=== PATIENT | male | born 1980 | race Caucasian/White ===

== ENCOUNTER 2018-06-17 11:11 | Emergency (ER) | payer OTHER ==
[2018-06-17 11:46] LABS: Absolute Lymphocytes (CBC) 1.2 K/uL (0.7-4.9); Absolute Monocytes 0.9 K/uL (0.1-1.3); Absolute Neutrophil 8.8 K/uL (1.8-8.0); Basophils % 0.6 % (0-1.3); Eosinophils % 0.7 % (0-4.4); Hematocrit 50.2 % (39.6-49.0); Lymphocytes % 10.5 % (15.3-44.8); MPV 9.1 fL (7.6-11.3); RBC Red Blood Cell Count 6.03 M/uL (4.33-5.43)
[2018-06-17] MEDS ORDERED: ONDANSETRON 4 MG/2 ML VIAL ONE (11:56)
[2018-06-17] MEDS ORDERED: NA CHLORIDE 0.9% 1,000 ML ONE (11:57)
[2018-06-17 12:04] LABS: Bilirubin Direct 0.2 mg/dL (0-0.2); Bilirubin Total 0.5 mg/dL (0.2-1.0); Potassium 3.4 mmol/L (3.5-5.1); Protein, Total 7.7 g/dL (6.4-8.2)
--- NOTE | 2018-06-17 12:37 | EDPHYS ---
Physician Documentation [facility] Name: Howie Castaneda Age: 37 yrs Sex: Male : 1980 Arrival Date: 06/17/2018 Time: 11:15 Bed 18 Private MD: None, None ED Physician Damien Berrios HPI: 06/17 11:26 This 37 yrs old Male presents to ER via Ambulatory with complaints of Cough, rn Nausea, fatigue. 11:26 The patient or guardian reports cough. Onset: The symptoms/episode began/occurred 3 rn week(s) ago. 11:27 Severity of symptoms: At their worst the symptoms were mild, in the emergency rn department the symptoms are unchanged. Associated signs and symptoms: Pertinent positives: nausea, Pertinent negatives: rhinorrhea, sore throat, vomiting. The patient has not experienced similar symptoms in the past. Reports diagnosed with strep throat 2-3 weeks ago, got better, got sick again recently, told had bronchitis, now patient with improved but still present cough, now reports more fatigue, intermittent abd cramping, assoc with nausea but no vomiting. No diarrhea. No hx of abd surgeries. Reports has been able to eat cheeseburger and orange juice, just feels nausea so stops. . Historical: - Allergies: 11:24 Morphine; hb - Home Meds: 11:24 None [Active]; hb - PMHx: 11:24 None; hb - PSHx: 11:24 None; hb - Immunization history:: Adult Immunizations up to date. - Social history:: Smoking status: Patient/guardian denies using tobacco. - Ebola Screening: : No symptoms or risks identified at this time. - Family history:: not pertinent. - Hospitalizations: : No recent hospitalization is reported. ROS: 11:27 Constitutional: Negative for chills, and weight loss, Eyes: Negative for injury, pain, rn redness, and discharge, ENT: Negative for injury, pain, and discharge, Neck: Negative for injury, pain, and swelling, Cardiovascular: Negative for chest pain, palpitations, and edema, Respiratory: Negative for shortness of breath, cough, wheezing, and pleuritic chest pain, Abdomen/GI: Negative for current abd pain, + nausea, no vomiting Back: Negative for injury and pain, MS/Extremity: Negative for injury and deformity, Skin: Negative for injury, rash, and discoloration, Neuro: Negative for numbness, tingling, and seizure. Exam: 11:27 Constitutional: This is a well developed, well nourished patient who is awake, alert, rn and in no acute distress. Walked to room without difficulty Head/Face: Normocephalic, atraumatic. Eyes: Pupils equal round and reactive to light, extra-ocular motions intact. Lids and lashes normal. Conjunctiva and sclera are non-icteric and not injected. Cornea within normal limits. Periorbital areas with no swelling, redness, or edema. ENT: dry MM with cracked lips Neck: Trachea midline, no thyromegaly or masses palpated, and no cervical lymphadenopathy. Supple, full range of motion without nuchal rigidity, or vertebral point tenderness. No Meningismus. Cardiovascular: Regular rate and rhythm. No pulse deficits. Respiratory: Lungs have equal breath sounds bilaterally, clear to auscultation Abdomen/GI: soft, non-tender Skin: Warm, dry MS/ Extremity: Pulses equal, no cyanosis. Neurovascular intact. Full, normal range of motion. Equal circumference. Neuro: Awake and alert, GCS 15, oriented to person, place, time, and situation. Cranial nerves II-XII grossly intact. Motor strength 5/5 in all extremities. Sensory grossly intact. Cerebellar exam normal. Normal gait. Vital Signs: 11:22 BP 131 / 96; Pulse 94; Resp 16; Temp 99.8(O); Pulse Ox 98% on R/A; Pain 3/10; hb 12:27 BP 136 / 101; Pulse 85; Resp 18; Pulse Ox 98% on R/A; Pain 8/10; em MDM: 11:17 Patient medically screened. rn 12:35 Differential Diagnosis: Influenza Upper Respiratory Infection. Data reviewed: vital rn signs, nurses notes, lab test result(s), radiologic studies. Counseling: I had a detailed discussion with the patient and/or guardian regarding: the historical points, exam findings, and any diagnostic results supporting the discharge/admit diagnosis, lab results, radiology results, the need for outpatient follow up, to return to the emergency department if symptoms worsen or persist or if there are any questions or concerns that arise at home. Response to treatment: the patient's symptoms have markedly improved after treatment, and as a result, I will discharge patient. Special discussion: I discussed with the patient/guardian in detail that at this point there is no indication for admission to the hospital. It is understood, however, that if the symptoms persist or worsen the patient needs to return immediately for re-evaluation. 06/17 11:25 Order name: CBC with Diff; Complete Time: 11:56 rn 06/17 11:25 Order name: Basic Metabolic Panel; Complete Time: 12:33 rn 06/17 11:25 Order name: Flu; Complete Time: 12: rn 06/17 11:25 Order name: Strep; Complete Time: 12: rn 06/17 11:25 Order name: [place] Screen Profile; Complete Time: 12: rn 06/17 11:25 Order name: LFT's; Complete Time: 12: rn 06/17 11:25 Order name: IV Start; Complete Time: 11:40 rn 06/17 11:25 Order name: Lipase; Complete Time: 12: rn 06/17 11:27 Order name: XRAY Chest Pa And Lat (2 Views) rn 06/17 12:04 Order name: Throat Culture EDMS Administered Medications: 11:53 Drug: NS 0.9% 1000 ml Route: IV; Rate: 1000 ml; Site: right antecubital; em 12:50 Follow up: IV Status: Completed infusion; IV Intake: 1000ml em 12:40 Drug: TORadol 30 mg Route: IVP; Site: right antecubital; la1 12:50 Follow up: Response: No adverse reaction; Pain is decreased em 12:41 Not Given (Patient Refused): Zofran 4 mg IVP once; over 2 minutes em Disposition: 06/17/18 12:36 Discharged to Home. Impression: Influenza due to identified novel influenza A virus, Infectious mononucleosis. - Condition is Stable. - Discharge Instructions: Influenza, Adult, Infectious Mononucleosis. - Prescriptions for Tamiflu 75 mg Oral Capsule - take 1 capsule by ORAL route every 12 hours for 5 days; 10 capsule. Zofran ODT 4 mg Oral tablet,disintegrating - place 1 tablet by TRANSLINGUAL route every 8 hours; 15 tablet. - Medication Reconciliation Form, Thank You Letter, Antibiotic Education, Prescription Opioid Use form. - Follow up: Private Physician; When: As needed; Reason: Recheck today's complaints, Re-evaluation by your physician. - Problem is new. - Symptoms have improved. Signatures: Dispatcher [employer] ED Brent Keller, OPERATIONS CHIEF OPERATIONS CHIEF em Damien Berrios MD MD rn Attema, Lee, RN RN la1 Arabella Motta RN RN Corrections: (The following items were deleted from the chart) 12:52 12:36 06/17/2018 12:36 Discharged to Home. Impression: Influenza due to identified em novel influenza A virus; Infectious mononucleosis. Condition is Stable. Forms are Medication Reconciliation Form, Thank You Letter, Antibiotic Education, Prescription Opioid Use. Follow up: Private Physician; When: As needed; Reason: Recheck today's complaints, Re-evaluation by your physician. Problem is new. Symptoms have improved. rn
--- NOTE | 2018-06-17 12:37 | ER ---
Nurse's Notes [facility] Name: Howie Castaneda Age: 37 yrs Sex: Male : 1980 Arrival Date: 06/17/2018 Time: 11:15 Bed 18 Private MD: None, None Diagnosis: Influenza due to identified novel influenza A virus;Infectious mononucleosis Presentation: 06/17 11:22 Presenting complaint: Cough and nausea x 1 week, headache and upper abdominal pain hb since last night. Transition of care: patient was not received from another setting of care. Onset of symptoms is unknown. Risk Assessment: Do you want to hurt yourself or someone else? Patient reports no desire to harm self or others. Care prior to arrival: None. 11:22 Method Of Arrival: Ambulatory hb 11:22 Acuity: BAKARI 3 hb Historical: - Allergies: 11:24 Morphine; hb - Home Meds: 11:24 None [Active]; hb - PMHx: 11:24 None; hb - PSHx: 11:24 None; hb - Immunization history:: Adult Immunizations up to date. - Social history:: Smoking status: Patient/guardian denies using tobacco. - Ebola Screening: : No symptoms or risks identified at this time. - Family history:: not pertinent. - Hospitalizations: : No recent hospitalization is reported. Screenin:24 Abuse screen: Denies threats or abuse. Denies injuries from another. Nutritional hb screening: No deficits noted. Tuberculosis screening: No symptoms or risk factors identified. Fall Risk None identified. Assessment: 11:38 General: Appears in no apparent distress. uncomfortable, Behavior is calm, cooperative, em reports malaise for 2 days. Pain: Complains of pain in abdomen Pain currently is 3 out of 10 on a pain scale. Pain began 1 day ago. Neuro: Level of Consciousness is awake, alert, obeys commands, Oriented to person, place, time, situation. Cardiovascular: Heart tones S1 S2 present Capillary refill < 3 seconds Patient's skin is warm and dry. Respiratory: Reports cough that is Airway is patent Respiratory effort is even, unlabored, Respiratory pattern is regular, symmetrical. GI: Abdomen is flat, Bowel sounds present X 4 quads. Abd is soft and non tender X 4 quads. Reports constipation, nausea, Patient currently denies vomiting. Derm: Skin is intact, is healthy with good turgor, Skin is pink, warm \T\ dry. Musculoskeletal: Range of motion: intact in all extremities. 11:45 Reassessment: I agree with previous assessment. hb 12:27 Reassessment: Patient appears in no apparent distress at this time. Patient and/or em family updated on plan of care and expected duration. Pain level reassessed. Patient is alert, oriented x 3, equal unlabored respirations, skin warm/dry/pink. reports frontal headache, rates pain 8/10, provider notified. Vital Signs: 11:22 BP 131 / 96; Pulse 94; Resp 16; Temp 99.8(O); Pulse Ox 98% on R/A; Pain 3/10; hb 12:27 BP 136 / 101; Pulse 85; Resp 18; Pulse Ox 98% on R/A; Pain 8/10; em ED Course: 11:15 Patient arrived in ED. mr 11:16 None, None is Private Physician. mr 11:17 Damien Berrios MD is Attending Physician. rn 11:23 Triage completed. hb 11:24 Arm band placed on. hb 11:29 Brent Keller LVN is Primary Nurse. em 11:36 Initial lab(s) drawn, by me, sent to lab. Flu and/or RSV swab sent to lab. Strep swab dh3 sent to lab. Inserted saline lock: 20 gauge in right antecubital area, using aseptic technique. Blood collected. 11:38 Patient has correct armband on for positive identification. Bed in low position. Call em light in reach. Side rails up X2. Pulse ox on. NIBP on. 12:21 XRAY Chest Pa And Lat (2 Views) In Process Unspecified. EDMS 12:49 No provider procedures requiring assistance completed. intact, bleeding controlled, No em redness/swelling at site. Pressure dressing applied. Administered Medications: 11:53 Drug: NS 0.9% 1000 ml Route: IV; Rate: 1000 ml; Site: right antecubital; em 12:50 Follow up: IV Status: Completed infusion; IV Intake: 1000ml em 12:40 Drug: TORadol 30 mg Route: IVP; Site: right antecubital; la1 12:50 Follow up: Response: No adverse reaction; Pain is decreased em 12:41 Not Given (Patient Refused): Zofran 4 mg IVP once; over 2 minutes em Intake: 12:50 IV: 1000ml; Total: 1000ml. em Outcome: 12:36 Discharge ordered by . rn 12:49 Discharged to home ambulatory. em 12:49 Condition: good 12:49 Discharge instructions given to patient, Instructed on discharge instructions, follow up and referral plans. medication usage, Demonstrated understanding of instructions, follow-up care, medications, Prescriptions given X 2. 12:52 Patient left the ED. em Signatures: Dispatcher [employer] EASTON RoderickMeghann mr Keller, Brent, DIGITAL SALES PLANNER DIGITAL SALES PLANNER em Damien Berrios MD MD rn Attema, Arcadio RN RN la1 Arabella Motta RN MILES Dari[place], Catia 3 Corrections: (The following items were deleted from the chart) 12:29 11:38 General: Appears in no apparent distress. uncomfortable, Behavior is calm, em cooperative, em
[2018-06-17] MEDS ORDERED: KETOROLAC 30 MG/ML INJ ONE (12:47)
--- NOTE | 2018-06-17 12:52 | RAD REPORT ---
EXAM DESCRIPTION: Wade Starks (2 Views)06/17/2018 12:22 pm CLINICAL HISTORY: Cough COMPARISON: None FINDINGS: The lungs appear clear of acute infiltrate. The heart is normal size IMPRESSION: No acute abnormalities displayed
== END 2018-06-17 12:52 | disposition home or self-care (01) ==
LOC: ER 11:11
DX: J11.1 Influenza due to unidentified influenza virus with other respiratory manifestations (principal); Z88.5 Allergy status to narcotic agent
CPT/HCPCS: 36415; 71046; 80048; 80076; 83690; 85025; 86308; 87070; 87081; 87804 ×2; 96361; 96374; 99284; J2405; J7030

== ENCOUNTER 2019-01-02 06:13 | Emergency (ER) | payer OTHER ==
[2019-01-02] MEDS ORDERED: NA CHLORIDE 0.9% 1,000 ML ONE (06:41)
[2019-01-02 07:01] LABS: Absolute Lymphocytes (CBC) 3.5 K/uL (0.7-4.9); Basophils % 1.1 % (0-1.3); Hematocrit 46.4 % (39.6-49.0); Lymphocytes % 33.4 % (15.3-44.8); MPV 8.7 fL (7.6-11.3); RBC Red Blood Cell Count 5.53 M/uL (4.33-5.43)
[2019-01-02 07:19] LABS: Albumin 3.7 g/dL (3.4-5.0); Bilirubin Direct 0.1 mg/dL (0-0.2); Bilirubin Total 0.3 mg/dL (0.2-1.0); Potassium 3.9 mmol/L (3.5-5.1); Protein, Total 7.2 g/dL (6.4-8.2)
--- NOTE | 2019-01-02 08:36 | RAD REPORT ---
EXAM DESCRIPTION: US - Scrotum Testicles - 01/02/2019 7:30 am CLINICAL HISTORY: left testicle pain COMPARISON: Stone Protocol dated 01/02/2019 FINDINGS: The right testicle 3.9 x 2.5 x 1.9 cm. No intratesticular masses or evidence of testicular torsion. The left testicle 3.5 x 2.2 x 2.0 cm. No intratesticular masses or evidence of testicular torsion. Both epididymides are normal in size and appearance. No pathologic fluid collections. IMPRESSION: Unremarkable study.
--- NOTE | 2019-01-02 08:36 | RAD REPORT ---
EXAM DESCRIPTION: CT - Stone Protocol - 01/02/2019 6:57 am CLINICAL HISTORY: Flank pain. left abdominal pain COMPARISON: No comparisons TECHNIQUE: Axial images were obtained without oral or IV contrast. Lack of contrast limits solid org an and vascular assessment. The [id number] spans the entirety of the system partially obscuring uppermost abdomen and lung bases. Coronal reformatted images were obtained and reviewed. All CT scans are performed using dose optimization technique as appropriate and may include automated exposure control or mA/KV adjustment according to patient size. FINDINGS: The lower lung castro are clear. Imaged portions of the liver and spleen show no suspicious findings on non-contrast imaging. The panc reas and adrenal glands are normal. No pathologic lymphadenopathy in the abdomen or pelvis. Mild left hydronephrosis and hydroureter is present without evidence of a radiopaque calculus. Recent ly passed calculus from left side is a possibility. No right-sided urinary tract stone or obstructive uropathy. No bowel obstruction, free air, free fluid or abscess. Normal appendix noted. No significant bony abnormality. IMPRESSION: Mild left-sided hydronephrosis and hydroureter is present without visualization of a rad iopaque calculus. Recently passed left-sided calculus would be a possibility.
[2019-01-02 08:57] LABS: Urine Blood TRACE (NEG); Urine Glucose TRACE (NEG); Urine Protein NEGATIVE (NEG); Urine Specific Gravity 1.025 (1.005-1.030); Urine pH 6.5 (5.0-7.0)
--- NOTE | 2019-01-02 09:22 | ER ---
Nurse's Notes [facility] Name: Howie Castaneda Age: 38 yrs Sex: Male : 1980 Arrival Date: 01/02/2019 Time: 06:15 Bed 20 Private MD: Diagnosis: Left Testicle Pain;Unspecified abdominal pain Presentation: 01/02 06:26 Presenting complaint: Patient states: "Around 4:30 this morning I woke up with pain in tr5 my left testicle and left part of my stomach. I also noticed my stool was green in color around 6:00am.". Transition of care: patient was not received from another setting of care. Onset of symptoms was January 02, 2019. Risk Assessment: Do you want to hurt yourself or someone else? Patient reports no desire to harm self or others. Initial Sepsis Screen: Does the patient meet any 2 criteria? No. Patient's initial sepsis screen is negative. Does the patient have a suspected source of infection? No. Patient's initial sepsis screen is negative. Care prior to arrival: None. 06:26 Method Of Arrival: Ambulatory tr5 06:26 Acuity: BAKARI 3 tr5 Triage Assessment: 07:00 General: Appears in no apparent distress. comfortable, Behavior is calm, cooperative, bp appropriate for age. Pain: Complains of pain in abdomen and pelvis. EENT: No deficits noted. Neuro: No deficits noted. Cardiovascular: No deficits noted. Respiratory: No deficits noted. GI: Reports lower abdominal pain. : Reports Scrotal pain: sudden onset. Derm: No deficits noted. Musculoskeletal: No deficits noted. Historical: - Allergies: 06:30 Morphine; tr5 - Home Meds: 06:30 atorvastatin oral [Active]; buspirone Oral [Active]; levothyroxine [Active]; ibuprofen tr5 Oral [Active]; - PMHx: 06:30 Hyperlipidemia; Hypertension; Depression; tr5 - PSHx: 06:30 nasal surgery; Tonsillectomy; tr5 - Immunization history:: Adult Immunizations up to date. - Social history:: Smoking status: unknown. - Ebola Screening: : No symptoms or risks identified at this time. Screenin:31 Abuse screen: Denies threats or abuse. Nutritional screening: No deficits noted. tr5 Tuberculosis screening: No symptoms or risk factors identified. Fall Risk None identified. Assessment: 06:31 General: Appears uncomfortable. Pain: Complains of pain in pelvis Pain radiates to left tr5 upper quadrant and left lower quadrant Quality of pain is described as crampy, sharp, Pain began 2 hours ago. Neuro: Level of Consciousness is awake, alert, obeys commands, Oriented to person, place, time, Line Out Man are equal bilaterally Moves all extremities. Cardiovascular: Capillary refill < 3 seconds Pulses are all present. Edema is absent. Respiratory: Airway is patent Respiratory effort is even, unlabored, Respiratory pattern is regular, symmetrical. GI: Bowel sounds present X 4 quads. Abd is soft X 4 quads. : Reports Scrotal pain: sudden onset. EENT: No signs and/or symptoms were reported regarding the EENT system. Derm: Skin temperature is warm. Musculoskeletal: Capillary refill < 3 seconds, Range of motion: intact in all extremities. 07:00 Reassessment: RECD REPORT FROM MADHAVI AQUINO. 38YO WM P/W L ABDOMINAL AND TESTICULAR PAIN. bp U/S AND UOP PENDING. 07:54 Reassessment: PT RETURNED FROM CT. bp 09:30 Reassessment: IVF IN PROCESS, D/C ON HOLD. bp 10:16 Reassessment: PT D/C HOME AMBULATORY, DX WITH UNSPECIFIED ABDOMINAL PAIN. bp Vital Signs: 06:30 BP 168 / 100; Pulse 60; Resp 16; Temp 98.8(O); Pulse Ox 99% on R/A; Weight 89.81 kg; tr5 Height 5 ft. 11 in. (180.34 cm); 08:00 BP 150 / 102; Pulse 63; Resp 16; Pulse Ox 99% ; bp 09:30 BP 138 / 94; Pulse 69; Resp 16; Pulse Ox 97% ; bp 06:30 Body Mass Index 27.62 (89.81 kg, 180.34 cm) tr5 ED Course: 06:15 Patient arrived in ED. ds1 06:21 Rikki Moffett PA is PHCP. cp 06:21 Duane Matamoros MD is Attending Physician. cp 06:26 Madhavi West RN is Primary Nurse. tr5 06:28 Triage completed. tr5 06:30 Arm band placed on. tr5 06:31 Patient has correct armband on for positive identification. Placed in gown. Bed in low tr5 position. Call light in reach. Pulse ox on. NIBP on. Door closed. Noise minimized. 06:31 No provider procedures requiring assistance completed. tr5 06:45 Inserted saline lock: 20 gauge in right antecubital area, using aseptic technique. tr5 06:[address] via stretcher. tr5 06:58 CT completed. Patient tolerated procedure well. 07:00 CT Stone Protocol In Process Unspecified. EDMS 08:47 US Scrotum Testicles In Process Unspecified. EDMS 09:04 Basic Metabolic Panel Sent. bp 09:19 Catracho Mina MD is Referral Physician. cp 10:17 IV discontinued, intact, bleeding controlled, No redness/swelling at site. Pressure bp dressing applied. Administered Medications: 06:51 Drug: NS 0.9% 1000 ml Route: IV; Rate: 1 bolus; Site: right antecubital; tr5 09:15 Drug: Rocephin - (cefTRIAXone) 1 grams Route: IVPB; Infused Over: 30 mins; Site: right bp antecubital; 09:15 Drug: TORadol 30 mg Route: IVP; Site: right antecubital; bp Outcome: 09:21 Discharge ordered by MD. cp 10:17 Discharged to home ambulatory. bp 10:17 Condition: stable 10:17 Discharge instructions given to patient, Instructed on discharge instructions, follow up and referral plans. medication usage, Demonstrated understanding of instructions, follow-up care, medications, Prescriptions given X 3. 10:17 Patient left the ED. bp Signatures: Dispatcher [employer] EDMN Rachid Fang Jinny Yen ds1 Rikki Moffett PA PA cp Peltier, Brian, RN RN bp Madhavi West, RN RN tr5
--- NOTE | 2019-01-02 09:22 | EDPHYS ---
Physician Documentation [facility] Name: Howie Castaneda Age: 38 yrs Sex: Male : 1980 Arrival Date: 01/02/2019 Time: 06:15 Bed 20 Private MD: ED Physician Duane Matamoros HPI: 01/02 06:45 This 38 yrs old Male presents to ER via Ambulatory with complaints of cp Testicular Pain, Abdominal Pain. 06:45 The patient presents with scrotal pain, of the left side, tenderness. Onset: The cp symptoms/episode began/occurred suddenly, this morning. Associated signs and symptoms: Pertinent positives: abdominal pain. 06:45 Severity of symptoms: in the emergency department the symptoms are unchanged, despite cp home interventions. Historical: - Allergies: 06:30 Morphine; tr5 - Home Meds: 06:30 atorvastatin oral [Active]; buspirone Oral [Active]; levothyroxine [Active]; ibuprofen tr5 Oral [Active]; - PMHx: 06:30 Hyperlipidemia; Hypertension; Depression; tr5 - PSHx: 06:30 nasal surgery; Tonsillectomy; tr5 - Immunization history:: Adult Immunizations up to date. - Social history:: Smoking status: unknown. - Ebola Screening: : No symptoms or risks identified at this time. ROS: 06:50 Constitutional: Negative for body aches, chills, fever, poor PO intake. cp 06:50 Eyes: Negative for injury, pain, redness, and discharge. cp 06:50 ENT: Negative for drainage from ear(s), ear pain, sore throat, difficulty swallowing, difficulty handling secretions. 06:50 Cardiovascular: Negative for chest pain, palpitations. 06:50 Respiratory: Negative for cough, shortness of breath, wheezing. 06:50 Abdomen/GI: Positive for abdominal pain, of the left lower quadrant, Negative for vomiting, diarrhea, constipation, anorexia, black/tarry stool, rectal bleeding. 06:50 Back: Negative for pain at rest, pain with movement, radiated pain. 06:50 : Positive for testicular pain Negative for urinary symptoms, penile discharge. 06:50 Skin: Negative for rash. 06:50 Neuro: Negative for altered mental status, headache, weakness. 06:50 All other systems are negative. Exam: 07:00 Constitutional: The patient appears in no acute distress, alert, awake, non-toxic, well cp developed, well nourished. 07:00 Head/Face: Normocephalic, atraumatic. cp 07:00 Eyes: Periorbital structures: appear normal, Conjunctiva: normal, no exudate, no injection, Sclera: no appreciated abnormality, Lids and lashes: appear normal, bilaterally. 07:00 ENT: External ear(s): are unremarkable, Nose: is normal, Mouth: Lips: moist, Oral mucosa: pink and intact, moist, Posterior pharynx: is normal, airway is patent, no erythema, no exudate. 07:00 Chest/axilla: Inspection: normal, Palpation: is normal, no crepitus, no tenderness. 07:00 Cardiovascular: Rate: normal, Rhythm: regular. 07:00 Respiratory: the patient does not display signs of respiratory distress, Respirations: normal, no use of accessory muscles, no retractions, no splinting, no tachypnea, labored breathing, is not present, Breath sounds: are clear throughout, no decreased breath sounds, no stridor, no wheezing. 07:00 Abdomen/GI: Inspection: abdomen appears normal, Bowel sounds: active, all quadrants, Palpation: soft, in all quadrants, mild abdominal tenderness, in the left upper quadrant and left lower quadrant, rebound tenderness, is not appreciated, involuntary guarding, is not appreciated. 07:00 : Male external genitalia: tenderness, of the left testicle is noted, of the epididymis area, that is mild. 07:00 Skin: no rash present. 07:00 Neuro: Orientation: to person, place \T\ time. Mentation: is normal. Vital Signs: 06:30 BP 168 / 100; Pulse 60; Resp 16; Temp 98.8(O); Pulse Ox 99% on R/A; Weight 89.81 kg; tr5 Height 5 ft. 11 in. (180.34 cm); 08:00 BP 150 / 102; Pulse 63; Resp 16; Pulse Ox 99% ; bp 09:30 BP 138 / 94; Pulse 69; Resp 16; Pulse Ox 97% ; bp 06:30 Body Mass Index 27.62 (89.81 kg, 180.34 cm) tr5 MDM: 06:26 Patient medically screened. cp 07:45 ED course: received verbal US report that scrotal US negative. cp 10:10 Data reviewed: vital signs, nurses notes, lab test result(s), radiologic studies, CT cp scan, ultrasound. 10:10 Differential diagnosis: appendicitis, UTI, prostatitis, urethritis, testicular torsion, cp epididymitis, orchitis, kidney stone. Counseling: I had a detailed discussion with the patient and/or guardian regarding: the historical points, exam findings, and any diagnostic results supporting the discharge/admit diagnosis, lab results, radiology results, to return to the emergency department if symptoms worsen or persist or if there are any questions or concerns that arise at home. Response to treatment: the patient's symptoms have mildly improved after treatment. Special discussion: Based on the patient's Hx, exam, and Dx evaluation, there is no indication for emergent surgery or inpatient Tx. It is understood by the patient/guardian that if the Sx's persist or worsen they need to return immediately for re-evaluation. 01/02 06:37 Order name: Basic Metabolic Panel 01/02 06:37 Order name: CBC with Diff; Complete Time: 08:08 01/02 08:59 Interpretation: Normal except: RBC 5.53. 01/02 06:37 Order name: Creatinine for Radiology; Complete Time: 08:08 01/02 06:37 Order name: Hepatic Function; Complete Time: 08:08 01/02 06:37 Order name: Lipase; Complete Time: 08:08 01/02 06:37 Order name: Urine Microscopic Only 01/02 06:37 Order name: IV Saline Lock; Complete Time: 06:51 01/02 06:37 Order name: US Scrotum Testicles; Complete Time: 08:58 cp 01/02 09:09 Interpretation: Report reviewed. 01/02 06:37 Order name: CT Stone Protocol; Complete Time: 08:58 01/02 06:38 Order name: Basic Metabolic Panel; Complete Time: 08:08 EDMS 01/02 08:59 Interpretation: Normal except: CL 111; GFR 72. 01/02 08:56 Order name: Urine Dipstick--Ancillary (enter results); Complete Time: 09:00 bd 01/02 09:00 Interpretation: Normal except: UBLD TRACE. 01/02 06:37 Order name: Labs collected and sent; Complete Time: 06:51 cp 01/02 06:37 Order name: Urine Dipstick-Ancillary (obtain specimen); Complete Time: 08:35 cp Administered Medications: 06:51 Drug: NS 0.9% 1000 ml Route: IV; Rate: 1 bolus; Site: right antecubital; tr5 09:15 Drug: Rocephin - (cefTRIAXone) 1 grams Route: IVPB; Infused Over: 30 mins; Site: right bp antecubital; 09:15 Drug: TORadol 30 mg Route: IVP; Site: right antecubital; bp Disposition: 19:10 Co-signature as Attending Physician, Duane Matamoros MD. Disposition: 01/02/19 09:21 Discharged to Home. Impression: Left Testicle Pain, Unspecified abdominal pain. - Condition is Stable. - Discharge Instructions: Abdominal Pain, Adult, Epididymitis. - Prescriptions for Ibuprofen 800 mg Oral Tablet - take 1 tablet by ORAL route every 8 hours As needed take with food; 30 tablet. Doxycycline Hyclate 100 mg Oral Tablet - take 1 tablet by ORAL route every 12 hours; 20 tablet. Tramadol 50 mg Oral Tablet - take 1 tablet by ORAL route every 8 hours as needed; 15 tablet. - Medication Reconciliation Form, Thank You Letter, Antibiotic Education, Prescription Opioid Use form. - Follow up: Catracho Mina MD; When: 2 - 3 days; Reason: Recheck today's complaints. - Problem is new. - Symptoms have improved. Signatures: Dispatcher [employer] EDMS Rikki Moffett PA PA Duane Matamoros MD MD Aquilino London RN RN Lazaro West RN RN tr5 Corrections: (The following items were deleted from the chart) 10:17 09:21 01/02/2019 09:21 Discharged to Home. Impression: Left Testicle Pain; Unspecified bp abdominal pain. Condition is Stable. Forms are Medication Reconciliation Form, Thank You Letter, Antibiotic Education, Prescription Opioid Use. Follow up: Catracho Mina; When: 2 - 3 days; Reason: Recheck today's complaints. Problem is new. Symptoms have improved. cp
[2019-01-02] MEDS ORDERED: NA CHLORIDE 0.9% 100 ML IV ONE (09:26)
[2019-01-02] MEDS ORDERED: CEFTRIAXONE 1000 MG/VIAL ONE (09:26)
[2019-01-02] MEDS ORDERED: KETOROLAC 30 MG/ML INJ ONE (09:26)
[2019-01-02 09:35] LABS: Urine Bacteria <20 /HPF (NONE SEEN); Urine Culture Reflex Order NOT NEEDED; Urine RBC <5 /HPF (NONE SEEN)
== END 2019-01-02 10:17 | disposition home or self-care (01) ==
LOC: ER 06:13
DX: R10.32 Left lower quadrant pain (principal); I10 Essential (primary) hypertension; F32.9 Major depressive disorder, single episode, unspecified; E78.5 Hyperlipidemia, unspecified; Z88.5 Allergy status to narcotic agent
CPT/HCPCS: 85025; 80048; 36415; 80076; 83690; 76377; 74176; 76870; 96375; 96374; 99284; J7030; 81003; 81015

== ENCOUNTER 2021-01-11 15:49 | Emergency (ER) | payer OTHER ==
[2021-01-11 16:53] LABS: Absolute Lymphocytes (CBC) 2.8 K/uL (0.7-4.9); Basophils % 0.6 % (0-1.3); Lymphocytes % 18.7 % (15.3-44.8); MPV 8.5 fL (7.6-11.3); RBC Red Blood Cell Count 5.77 M/uL (4.33-5.43)
[2021-01-11 17:07] LABS: Potassium 3.9 mmol/L (3.5-5.1)
[2021-01-11] MEDS ORDERED: FENTANYL CITR 100 MCG/2 ML ONE (17:53)
[2021-01-11] MEDS ORDERED: NA CHLORIDE 0.9% 1,000 ML ONE (17:54)
[2021-01-11] MEDS ORDERED: ONDANSETRON 4 MG/2 ML VIAL ONE (17:54)
--- NOTE | 2021-01-11 18:15 | ER ---
Nurse's Notes [facility] Name: Howie Castaneda Age: 40 yrs Sex: Male : 1980 Arrival Date: 01/11/2021 Time: 15:55 Bed DX1 Private MD: Diagnosis: Fall from truck bed;Back Pain;Abdominal pain, Generalized;Chest pain, unspecified;Headache Presentation: 01/11 16:33 Chief complaint: Patient states: I was standing in the back of a truck and fell kg backwards over tailgate and hit head on concrete. Pt did have LOC. Pt complaining of back pain, abdominal pain, chest pain, back of heads. Care prior to arrival: None. Mechanism of Injury: Fall From the back of a truck and hit head on concrete. Trauma event details: Injury occurred in the [facility], Injury occurred: at home. Injury occurred: January 11, 2021 Injury occurred at: 15:00. 16:33 Acuity: BAKARI 3 kg 16:33 Method Of Arrival: Ambulatory kg 16:44 Coronavirus screen: Client denies travel out of the [place] in the last 14 days. At this kg time, unable to obtain information related to travel outside the [place] Client presents with at least one sign or symptom that may indicate coronavirus-19. Ebola Screen: Patient negative for fever greater than or equal to 101.5 degrees Fahrenheit, and additional compatible Ebola Virus Disease symptoms Patient denies exposure to infectious person. Patient denies travel to an Ebola-affected area in the 21 days before illness onset. Initial Sepsis Screen: Does the patient meet any 2 criteria? No. Patient's initial sepsis screen is negative. Does the patient have a suspected source of infection? No. Patient's initial sepsis screen is negative. Risk Assessment: Do you want to hurt yourself or someone else? Patient reports no desire to harm self or others. Onset of symptoms was January 11, 2021 at 15:00. Trauma Activation: Alert Physician: ED Physician; Name: Sara Ramos NP; Notified At: 16:31; Arrived At: 16:32 Physician: General Surgeon; Name: ; Notified At: 16:31; Arrived At: Physician: Radiology; Name: ; Notified At: 16:31; Arrived At: Physician: Respiratory; Name: ; Notified At: 16:31; Arrived At: Physician: Lab; Name: ; Notified At: 16:31; Arrived At: Historical: - Allergies: 16:45 Morphine; kg - Home Meds: 16:45 Buspirone Oral [Active]; levothyroxine [Active]; Ibuprofen Oral [Active]; Prozac Oral kg [Active]; - Immunization history: Last tetanus immunization: - up to date. - Social history:: Smoking status: Patient denies any tobacco usage or history of. Screenin:33 Abuse screen: Denies threats or abuse. Denies injuries from another. Tuberculosis kg screening: No symptoms or risk factors identified. 18:24 Nutritional screening: No deficits noted. Fall Risk None identified. ss Primary Survey: 16:33 NO uncontrolled hemorrhage observed. A: Airway: patent. Breathing/Chest: Respiratory kg pattern: regular, Respiratory effort: spontaneous, unlabored, Breath sounds: clear, bilaterally. Circulation: Cardiac rhythm: sinus rhythm Heart tones present. Pulses: palpable right radial artery and left radial artery. Skin color: pink. Disability Alert. Exposure/Environment: All clothing and personal items were removed. Forensic evidence collection is not deemed to be indicated at this time. Items placed in patient belonging bag. There is no evidence of uncontrolled external bleeding. No obvious injuries are noted at this time. A warming method has been applied: A warm blanket has been provided to the patient. 17:33 Reassessment Airway Airway Breathing/Chest Respiratory pattern Regular Respiratory ss effort Spontaneous Unlabored Breath sounds Clear Disability Alert. Assessment: 16:33 General: Appears uncomfortable, Behavior is calm, cooperative, appropriate for age, kg quiet. Pain: Complains of pain in head, chest, abdomen. 17:33 Reassessment: Patient appears in no apparent distress at this time. Patient and/or ss family updated on plan of care and expected duration. Pain level reassessed. Patient is alert, oriented x 3, equal unlabored respirations, skin warm/dry/pink. Neuro: Level of Consciousness is awake, alert, Oriented to person, place, time, situation. Respiratory: Airway is patent Respiratory effort is even, unlabored, Respiratory pattern is regular, symmetrical. Derm: Skin is intact, is healthy with good turgor, Skin is dry, Skin is pink, warm \T\ dry. normal. Vital Signs: 16:33 BP 153 / 95; Pulse 92; Resp 20; Temp 98.0(TE); Pulse Ox 98% on R/A; Weight 83.91 kg; kg Height 5 ft. 5 in. (165.10 cm) (R); Pain 10/10; 16:33 Body Mass Index 30.79 (83.91 kg, 165.10 cm) kg Renee Coma Score: 16:33 Eye Response: spontaneous(4). Verbal Response: oriented(5). Motor Response: obeys kg commands(6). Total: 15. Trauma Score (Adult): 16:33 Eye Response: spontaneous(1); Verbal Response: oriented(1); Motor Response: obeys kg commands(2); Systolic BP: > 89 mm Hg(4); Respiratory Rate: 10 to 29 per min(4); Renee Score: 15; Trauma Score: 12 ED Course: 15:55 Patient arrived in ED. ds1 16:33 Patient has correct armband on for positive identification. kg 16:33 Patient maintains SpO2 saturation greater than 95% on room air. kg 16:36 [facility]C [facility]. kb 16:36 Damien Berrios MD is Attending Physician. kb 16:38 Triage completed. kg 16:44 No provider procedures requiring assistance completed. Inserted saline lock: 20 gauge kg in left antecubital area, using aseptic technique. ,using aseptic technique. Placed by [employer] Blood collected. 16:45 Arm band placed on. kg 16:50 Coty Valencia, MILES is Primary Nurse. ss 17:00 CT Traumagram (Head C Spine CAP W Con) In Process Unspecified. EDMS 18:24 IV discontinued, intact, bleeding controlled, No redness/swelling at site. Pressure ss dressing applied. Administered Medications: 17:36 Drug: Zofran (Ondansetron) 4 mg Route: IVP; Site: left antecubital; kg 18:25 Follow up: Response: No adverse reaction; Nausea is decreased ss 17:36 Drug: fentaNYL (PF) 50 mcg Route: IVP; Site: left antecubital; kg 18:25 Follow up: Response: No adverse reaction; Pain is decreased ss 17:36 Drug: NS 0.9% 1000 ml Route: IV; Rate: 1000 ml; Site: left antecubital; kg 18:25 Follow up: IV Status: Completed infusion; IV Intake: 1000ml ss Intake: 18:25 IV: 1000ml; Total: 1000ml. ss Outcome: 16:33 Patient's length of stay was not longer than 2 hours. kg 18:14 Discharge ordered by MD. kb 18:24 Discharged to home ambulatory. ss 18:24 Condition: good 18:24 Discharge instructions given to patient, family, Instructed on discharge instructions, follow up and referral plans. medication usage, Demonstrated understanding of instructions, follow-up care. 18:25 Patient left the ED. ss Signatures: Dispatcher [employer] EDSara Louie, CHELSIE DIAZ-Jinny Fowler ds1 Coty Valencia RN RN ss Alma Coelho RN RN kg
--- NOTE | 2021-01-11 18:15 | EDPHYS ---
Physician Documentation [facility] Name: Howie Castaneda Age: 40 yrs Sex: Male : 1980 Arrival Date: 01/11/2021 Time: 15:55 Bed DX1 Private MD: ED Physician Damien Berrios HPI: 01/11 18:10 This 40 yrs old Male presents to ER via Ambulatory with complaints of Fall kb Injury. 18:10 Details of fall: The patient fell from a height, bed of truck. Onset: The kb symptoms/episode began/occurred at 15:00. Associated injuries: The patient sustained injury to the head, pain, neck injury, pain, upper back injury, pain, injury to the low back, pain, injury to the abdomen, tenderness. Severity of symptoms: At their worst the symptoms were moderate, in the emergency department the symptoms are unchanged. The patient has not experienced similar symptoms in the past. The patient has not recently seen a physician. 18:13 Pt reports he slipped in the bed of his truck and fell backwards over the tailgate. kb Unknown loc. Reports pain to head, neck, back, chest and abdomen. . Historical: - Allergies: 16:45 Morphine; kg - Home Meds: 16:45 Buspirone Oral [Active]; levothyroxine [Active]; Ibuprofen Oral [Active]; Prozac Oral kg [Active]; - Immunization history: Last tetanus immunization: - up to date. - Social history:: Smoking status: Patient denies any tobacco usage or history of. ROS: 18:04 Constitutional: Negative for fever, chills, and weight loss. kb 18:04 Abdomen/GI: Positive for abdominal pain, Negative for nausea, vomiting, and diarrhea. 18:04 Neuro: Positive for headache. 18:04 All other systems are negative. 18:12 Back: Positive for pain at rest, pain with movement. kb Exam: 18:04 Constitutional: This is a well developed, well nourished patient who is awake, alert, kb and in no acute distress. Head/Face: Normocephalic, atraumatic. ENT: Moist Mucous membranes Cardiovascular: Regular rate and rhythm with a normal S1 and S2. No gallops, murmurs, or rubs. No pulse deficits. Respiratory: Respirations even and unlabored. No increased work of breathing, no retractions or nasal flaring. Skin: Warm, dry with normal turgor. Normal color. MS/ Extremity: Pulses equal, no cyanosis. Neurovascular intact. Full, normal range of motion. Neuro: Awake and alert, GCS 15, oriented to person, place, time, and situation. Moves all extremities. Normal gait. Psych: Awake, alert, with orientation to person, place and time. Behavior, mood, and affect are within normal limits. 18:04 Chest/axilla: Inspection: normal, Palpation: tenderness, that is mild, of the anterior aspect of right upper chest and anterior aspect of left upper chest, that totally reproduces the patient's complaints. 18:04 Abdomen/GI: Inspection: abdomen appears normal, Bowel sounds: normal, in all quadrants, Palpation: moderate abdominal tenderness, in all quadrants. 18:13 Back: pain, that is moderate, of the thoracic area and lumbar area, ROM is painful, kb with all movement, normal spinal alignment noted. Vital Signs: 16:33 BP 153 / 95; Pulse 92; Resp 20; Temp 98.0(TE); Pulse Ox 98% on R/A; Weight 83.91 kg; kg Height 5 ft. 5 in. (165.10 cm) (R); Pain 10/10; 16:33 Body Mass Index 30.79 (83.91 kg, 165.10 cm) kg Barry Coma Score: 16:33 Eye Response: spontaneous(4). Verbal Response: oriented(5). Motor Response: obeys kg commands(6). Total: 15. Trauma Score (Adult): 16:33 Eye Response: spontaneous(1); Verbal Response: oriented(1); Motor Response: obeys kg commands(2); Systolic BP: > 89 mm Hg(4); Respiratory Rate: 10 to 29 per min(4); Renee Score: 15; Trauma Score: 12 MDM: 16:36 Patient medically screened. kb 18:03 Data reviewed: vital signs, nurses notes. Data interpreted: Pulse oximetry: on room air kb is 98 %. Interpretation: normal. Counseling: I had a detailed discussion with the patient and/or guardian regarding: the historical points, exam findings, and any diagnostic results supporting the discharge/admit diagnosis, lab results, radiology results, the need for outpatient follow up, a family practitioner, to return to the emergency department if symptoms worsen or persist or if there are any questions or concerns that arise at home. 01/11 16:37 Order name: CBC with Diff; Complete Time: 17:17 kb 01/11 16:37 Order name: Basic Metabolic Panel; Complete Time: 17:17 kb 01/11 16:37 Order name: CT Traumagram (Head C Spine CAP W Con) 01/11 16:37 Order name: IV Start; Complete Time: 16:51 kb Administered Medications: 17:36 Drug: Zofran (Ondansetron) 4 mg Route: IVP; Site: left antecubital; kg 18:25 Follow up: Response: No adverse reaction; Nausea is decreased ss 17:36 Drug: fentaNYL (PF) 50 mcg Route: IVP; Site: left antecubital; kg 18:25 Follow up: Response: No adverse reaction; Pain is decreased ss 17:36 Drug: NS 0.9% 1000 ml Route: IV; Rate: 1000 ml; Site: left antecubital; kg 18:25 Follow up: IV Status: Completed infusion; IV Intake: 1000ml ss Disposition: 18:48 Co-signature as Attending Physician, Damien Berrios MD. rn 18:49 I agree with the assessment and plan of care. Attestation: The patient's history, exam rn findings, diagnostics, and a summary of any interventions or procedures was reviewed in detail with Sara HOLGUIN. Disposition Summary: 01/11/21 18:14 Discharge Ordered Location: Home kb Condition: Stable kb Diagnosis - Fall from truck bed kb - Back Pain kb - Abdominal pain, Generalized kb - Chest pain, unspecified kb - Headache kb Followup: kb - With: Emergency Department - When: As needed - Reason: Worsening of condition Followup: kb - With: Private Physician - When: 2 - 3 days - Reason: Recheck today's complaints, Continuance of care, Re-evaluation by your physician Discharge Instructions: - Discharge Summary Sheet kb - Musculoskeletal Pain kb Forms: - Medication Reconciliation Form kb - Thank You Letter kb - Antibiotic Education kb - Prescription Opioid Use kb Prescriptions: - Cyclobenzaprine 10 mg Oral Tablet - take 1 tablet by ORAL route every 8 hours As needed; 21 tablet; Refills: 0, kb Product Selection Permitted Signatures: Dispatcher [employer] EDSara Louie FNP-C RISK INTERN-Ckb Damien Berrios MD MD rn Alma Coelho RN RN Coty Mathews RN ss
[2021-01-11 18:34] VITALS: BP 153/95; TEMP 98; O2SAT 98
--- NOTE | 2021-01-12 10:32 | RAD REPORT ---
EXAM DESCRIPTION: CT - Head C Spine Cap Ron Akers - 01/11/2021 10:39 pm CLINICAL HISTORY: PAIN, trauma, head, neck, chest and abdomen pain Prolonged technical malfunctions delayed final written report. Images were reviewed and findings tele phoned to the clinician at the time of the study. COMPARISON: No comparisons TECHNIQUE: Axial [address] head images were obtained. Axial [address] cervical spine images were obtaine d with sagittal and coronal reconstruction images reviewed. During dynamic enhancement of 100mL non-i onic contrast, axial 5 mm images of the chest, abdomen and pelvis were obtained. Biphasic technique p erformed of the abdomen and pelvis. All CT scans are performed using dose optimization technique as appropriate and may include automated exposure control or mA/KV adjustment according to patient size. FINDINGS: No intracranial hemorrhage, mass or edema. No midline shift or abnormal fluid collection. Mastoid air cells and paranasal sinuses are clear. No skull fracture. CT cervical spine imaging shows normal height. Normal alignment of the vertebrae. No disc space narro wing. No paraspinal mass or hematoma seen. Central canal detail is inherently limited. Concerns for t raumatic disc herniation or traumatic cord injury can be further addressed with MR imaging. CT chest shows no pneumothorax, pulmonary contusion or pleural fluid collection. No mediastinal hemat nicolasa and the aorta and pulmonary arteries are unremarkable. No chest will mass or abnormal axillary fi nding. No displaced rib fracture or other significant bony finding. CT abdomen and pelvis show no injury to solid abdominal viscera. Gallbladder and biliary tree are unr emarkable. No bowel injury or significant finding. No free air, free fluid or abnormal stranding. No urinary bladder abnormality. No acute bone findings. There are mild facet and endplate degenerative changes in the mid to lower tobias mbar spine. Fat extends minimally into each inguinal canal. No significant vascular finding. IMPRESSION: No significant CT Head finding. No significant CT Cervical Spine finding. No significant CT Chest finding. No significant CT Abdomen and Pelvis finding.
== END 2021-01-11 18:25 | disposition home or self-care (01) ==
LOC: ER 15:49
DX: R07.9 Chest pain, unspecified (principal); M54.9 Dorsalgia, unspecified; R10.84 Generalized abdominal pain; W17.89XA Other fall from one level to another, initial encounter; Z88.5 Allergy status to narcotic agent
CPT/HCPCS: 96361; 85025; 80048; 36415; 82565; 70450; 72125; 71260; 74177; 96375; 96374; 99284; Q9967; J3010; J7030; J2405; G0390

== ENCOUNTER 2024-01-04 09:49 | Emergency (ER) | payer OTHER ==
--- NOTE | 2024-01-04 10:42 | ER ---
Nurse's Notes [facility] Name: Howie Castaneda Age: 43 yrs Sex: Male : 1980 Arrival Date: 01/04/2024 Time: 09:49 Bed 18 Private MD: Diagnosis: Acute upper respiratory infection, unspecified;Fever, unspecified;Acute pharyngitis, unspecified Presentation: 01/03 10:00 Chief complaint: Patient states: sore throat, fever, headache, cough since Monday. iw Coronavirus screen: Client presents with at least one sign or symptom that may indicate coronavirus-19. Ebola Screen: No symptoms or risks identified at this time. 10:00 Method Of Arrival: Ambulatory iw 10:00 Acuity: BAKARI 4 iw 10:00 Risk Assessment: Do you want to hurt yourself or someone else? Patient reports no ar6 desire to harm self or others. 10:00 Initial Sepsis Screen: Does the patient meet any 2 criteria? No. Patient's initial ar6 sepsis screen is negative. Does the patient have a suspected source of infection? No. Patient's initial sepsis screen is negative. Onset of symptoms was January 02, 2024. Triage Assessment: 10:00 General: Appears in no apparent distress. Behavior is calm, cooperative, appropriate ar6 for age. Pain: Denies pain. EENT: Throat is clear is pink. Neuro: Level of Consciousness is awake, alert, obeys commands, Oriented to person, place, time, situation. Cardiovascular: Capillary refill < 3 seconds. Respiratory: Airway is patent. GI: Abdomen is round non-distended. : No signs and/or symptoms were reported regarding the genitourinary system. Derm: Skin is intact, is healthy with good turgor, Skin is dry, Skin is pink, warm \T\ dry. Musculoskeletal: No signs and/or symptoms reported regarding the musculoskeletal system. Historical: - Allergies: 10:02 Morphine; iw - PMHx: 10:02 Depression; Hyperlipidemia; Hypertension; iw - Immunization history:: Adult Immunizations not up to date. - Infectious Disease History:: Denies. - Social history:: Smoking status: Patient denies any tobacco usage or history of. Screenin:04 [facility] ED Fall Risk Assessment (Adult) History of falling in the last 3 months, ar6 including since admission No falls in past 3 months (0 pts) Confusion or Disorientation No (0 pts) Intoxicated or Sedated No (0 pts) Impaired Gait No (0 pts) Mobility Assist Device Used No (0 pt) Altered Elimination No (0 pt) Score/Fall Risk Level 0 - 2 = Low Risk Oriented to surroundings, Maintained a safe environment, Educated pt \T\ family on fall prevention, incl call for assistance when getting out of bed, Hourly rounding (assess needs \T\ fall precautionary measures) done. Abuse screen: Denies threats or abuse. Denies injuries from another. Nutritional screening: No deficits noted. Tuberculosis screening: No symptoms or risk factors identified. Assessment: 10:04 General: Appears in no apparent distress. Behavior is calm, cooperative, appropriate ar6 for age. Pain: Denies pain. Neuro: Level of Consciousness is awake, alert, obeys commands, Oriented to person, place, time, situation. Cardiovascular: Capillary refill < 3 seconds. Respiratory: Airway is patent Respiratory effort is even, unlabored, Respiratory pattern is regular, Sputum is thick, Breath sounds are clear bilaterally. Respiratory: Reports cough that is productive. GI: Abdomen is flat, non-distended. : No signs and/or symptoms were reported regarding the genitourinary system. EENT: Throat is reddened bilaterally. Derm: Skin is intact, Skin is dry, Skin is pink, warm \T\ dry. Musculoskeletal: No signs and/or symptoms reported regarding the musculoskeletal system. Vital Signs: 10:00 BP 153 / 99; Pulse 95; Resp 16; Temp 99.2; Pulse Ox 96% on R/A; Weight 88 kg; Height 5 iw ft. 5 in. ; Pain 7/10; 10:13 BP 158 / 87; Pulse 76; Resp 16; Pulse Ox 100% on R/A; ar6 10:47 BP 156 / 85; Pulse 94; Resp 18; Pulse Ox 100% on R/A; ar6 10:00 Body Mass Index 32.28 (88.00 kg, 165.1 cm) iw 10:00 Pain Scale: Adult iw [place] Coma Score: 10:39 Eye Response: spontaneous(4). Motor Response: obeys commands(6). Verbal Response: abbey oriented(5). Total: 15. ED Course: 09:53 Patient arrived in ED. mr 09:54 Rikki Franks MD is Attending Physician. abbey 10: Triage completed. iw 10:02 Porsche Hutchinson, RN is Primary Nurse. ar6 10:02 Arm band placed on. iw 10:04 Patient has correct armband on for positive identification. Bed in low position. Call ar6 light in reach. Side rails up X 1. Pulse ox on. NIBP on. Door closed. Noise minimized. Visitors limited. Lights dimmed. Warm blanket given. 10:04 No provider procedures requiring assistance completed. ar6 11:07 Provided Education on: medications at d/c. ar6 11:07 Patient did not have IV access during this emergency room visit. ar6 Administered Medications: 10:56 Drug: AZITHromycin PO 500 mg PO once Route: PO; ar6 11:07 Follow up: Response: No adverse reaction ar6 10:56 Drug: Ibuprofen PO 800 mg PO once Route: PO; ar6 11:07 Follow up: Response: No adverse reaction ar6 Medication: 10:04 VIS not applicable for this client. ar6 Outcome: 10:41 Discharge ordered by . abbey 11:04 Discharged to home ambulatory, ar6 11:04 Condition: good 11:04 Discharge instructions given to patient, 11:08 Patient left the ED. ar6 Signatures: Rikki Franks MD MD cha Rivera, Mary, Reg Reg Mehreen Rogers RN RN Porsche Otero RN RN ar6
--- NOTE | 2024-01-04 10:42 | EDPHYS ---
Physician Documentation [facility] Name: Howie Castaneda Age: 43 yrs Sex: Male : 1980 Arrival Date: 01/04/2024 Time: 09:49 Bed 18 Private MD: ED Physician Rikki Franks HPI: 01/03 10:35 This 43 yrs old Male presents to ER via Ambulatory with complaints of Sore abbey Throat, Fever. 10:35 The patient presents with sore throat. The patient describes throat pain as burning, abbey constant. Onset: The symptoms/episode began/occurred 3 day(s) ago. Severity of symptoms: At their worst the symptoms were mild, in the emergency department the symptoms are unchanged. Modifying factors: The symptoms are alleviated by fluids, the symptoms are aggravated by swallowing, Patient's oral intake status: good. Associated signs and symptoms: Pertinent positives: cough, fever, headache. The patient has experienced similar episodes in the past, a few times. Historical: - Allergies: 10:02 Morphine; iw - PMHx: 10:02 Depression; Hyperlipidemia; Hypertension; iw - Immunization history:: Adult Immunizations not up to date. - Infectious Disease History:: Denies. - Social history:: Smoking status: Patient denies any tobacco usage or history of. ROS: 10:38 Eyes: Negative for injury, pain, redness, and discharge, Neck: Negative for injury, abbey pain, and swelling, Cardiovascular: Negative for chest pain, palpitations, and edema, Respiratory: Negative for shortness of breath, cough, wheezing, and pleuritic chest pain, Abdomen/GI: Negative for abdominal pain, nausea, vomiting, diarrhea, and constipation, Back: Negative for injury and pain, : Negative for injury, bleeding, discharge, and swelling, MS/Extremity: Negative for injury and deformity, Skin: Negative for injury, rash, and discoloration, Neuro: Negative for headache, weakness, numbness, tingling, and seizure, Psych: Negative for depression, anxiety, suicide ideation, homicidal ideation, and hallucinations, Allergy/Immunology: Negative for hives, rash, and allergies, Endocrine: Negative for neck swelling, polydipsia, polyuria, polyphagia, and marked weight changes, Hematologic/Lymphatic: Negative for swollen nodes, abnormal bleeding, and unusual bruising, 10:38 Constitutional: Positive for fatigue, fever, malaise, 10:38 ENT: Positive for rhinorrhea, sinus congestion, sore throat, Exam: 10:38 Constitutional: This is a well developed, well nourished patient who is awake, alert, abbey and in no acute distress. Head/Face: Normocephalic, atraumatic. Eyes: Pupils equal round and reactive to light, extra-ocular motions intact. Lids and lashes normal. Conjunctiva and sclera are non-icteric and not injected. Cornea within normal limits. Periorbital areas with no swelling, redness, or edema. Neck: Trachea midline, no thyromegaly or masses palpated, and no cervical lymphadenopathy. Supple, full range of motion without nuchal rigidity, or vertebral point tenderness. No Meningismus. Chest/axilla: Normal chest wall appearance and motion. Nontender with no deformity. No lesions are appreciated. Cardiovascular: Regular rate and rhythm with a normal S1 and S2. No gallops, murmurs, or rubs. Normal PMI, no JVD. No pulse deficits. Respiratory: Lungs have equal breath sounds bilaterally, clear to auscultation and percussion. No rales, rhonchi or wheezes noted. No increased work of breathing, no retractions or nasal flaring. Abdomen/GI: Soft, non-tender, with normal bowel sounds. No distension or tympany. No guarding or rebound. No evidence of tenderness throughout. Back: No spinal tenderness. No costovertebral tenderness. Full range of motion. Male : Normal genitalia with no discharge or lesions. Skin: Warm, dry with normal turgor. Normal color with no rashes, no lesions, and no evidence of cellulitis. MS/ Extremity: Pulses equal, no cyanosis. Neurovascular intact. Full, normal range of motion. Neuro: Awake and alert, GCS 15, oriented to person, place, time, and situation. Cranial nerves II-XII grossly intact. Motor strength 5/5 in all extremities. Sensory grossly intact. Cerebellar exam normal. Normal gait. Psych: Awake, alert, with orientation to person, place and time. Behavior, mood, and affect are within normal limits. 10:38 ENT: Posterior pharynx: no acute changes, Airway: normal, no evidence of obstruction, Tonsils: are normal in appearance, enlarged on the right, enlarged on the left, Uvula: normal, swelling, is not appreciated, erythema, that is mild, exudate, is not appreciated, peritonsillar mass, is not appreciated, Vital Signs: 10:00 BP 153 / 99; Pulse 95; Resp 16; Temp 99.2; Pulse Ox 96% on R/A; Weight 88 kg; Height 5 iw ft. 5 in. ; Pain 7/10; 10:13 BP 158 / 87; Pulse 76; Resp 16; Pulse Ox 100% on R/A; ar6 10:47 BP 156 / 85; Pulse 94; Resp 18; Pulse Ox 100% on R/A; ar6 10:00 Body Mass Index 32.28 (88.00 kg, 165.1 cm) iw 10:00 Pain Scale: Adult iw [place] Coma Score: 10:39 Eye Response: spontaneous(4). Motor Response: obeys commands(6). Verbal Response: abbey oriented(5). Total: 15. MDM: 09:54 Patient medically screened. abbey 10:39 Differential diagnosis: bronchitis, bronchitis, URI, migraine, tension headache, abbey cocksackie virus, epiglottitis, slime-irving virus, influenza, laryngitis, mononucleosis, peritonsillar abscess chlamydia pharyngitis, pharyngitis, tonsillitis, upper respiratory infection, uvulitis, viral syndrome. Antibiotic administration: The patient is discharged and will get outpatient antibiotics, Zithromax. Data reviewed: vital signs, nurses notes. Consideration of Admission/Observation Escalation of care including admission/observation considered. I considered the following discharge prescriptions or medication management in the emergency department Medications were administered in the Emergency Department. See MAR. Test considered but Not performed: Labs: no labs, per patient. 01/03 10:35 Order name: PO challenge abbey Administered Medications: 10:56 Drug: AZITHromycin PO 500 mg PO once Route: PO; ar6 11:07 Follow up: Response: No adverse reaction ar6 10:56 Drug: Ibuprofen PO 800 mg PO once Route: PO; ar6 11:07 Follow up: Response: No adverse reaction ar6 Disposition Summary: 01/04/24 10:41 Discharge Ordered Notes: Location: Home abbey Problem: new abbey Symptoms: have improved abbey Condition: Stable abbey Diagnosis - Acute upper respiratory infection, unspecified abbey - Fever, unspecified abbey - Acute pharyngitis, unspecified abbey Followup: abbey - With: Private Physician - When: 2 - 3 days - Reason: Recheck today's complaints, Continuance of care, Re-evaluation by your physician Discharge Instructions: - Discharge Summary Sheet abbey - Fever, Adult abbey - Pharyngitis abbey - Sore Throat abbey - Upper Respiratory Infection, Adult abbey - Cool Mist Vaporizer abbey - Strep Throat, Adult, Qhzo-xx-Dlst abbey - Upper Respiratory Infection, Adult, Uxtf-sw-Azil abbey - Pharyngitis, Osdm-id-Yvis abbey - Cough, Adult [facility] Forms: - Medication Reconciliation Form [facility] - Antibiotic Education [facility] - Prescription Opioid Use [facility] - Patient Portal Instructions [facility] - Leadership Thank You Letter [facility] - Work release form [email or web address] Prescriptions: - Pepcid 20 mg Oral tablet - take 1 tablet ORAL route every 12 hours for 21 days; 42 tablet; Refills: 0, [facility] Product Selection Permitted - Zithromax 500 mg Oral tablet - take 1 tablet ORAL route once daily for 5 days; 5 tablet; Refills: 0, Product [facility] Selection Permitted Signatures: Rikki Franks MD MD cha Williams, Irene RN RN Porsche Hutchinson RN RN ar6
[2024-01-04] MEDS ORDERED: IBUPROFEN 400 MG TAB ONE (10:54)
[2024-01-04] MEDS ORDERED: AZITHROMYCIN 250 MG TAB ONE (10:54)
[2024-01-04 11:18] VITALS: TEMP 99.2
[2024-01-04 11:19] VITALS: O2SAT 100
[2024-01-04 11:20] VITALS: BP 156/85
== END 2024-01-04 11:08 | disposition home or self-care (01) ==
LOC: ER 09:49
DX: J06.9 Acute upper respiratory infection, unspecified (principal); R50.9 Fever, unspecified; J02.9 Acute pharyngitis, unspecified; I10 Essential (primary) hypertension; E78.5 Hyperlipidemia, unspecified; F32.A Depression, unspecified
CPT/HCPCS: 99283

== ENCOUNTER 2025-01-02 15:21 | Emergency (ER) | payer OTHER ==
[2025-01-02] MEDS ORDERED: NA CHLORIDE 0.9% 1,000 ML ONE (15:53)
[2025-01-02] MEDS ORDERED: ONDANSETRON 4 MG/2 ML VIAL ONE ×2 (15:53→18:39)
[2025-01-02 16:44] LABS: Absolute Lymphocytes (CBC) 2.5 K/uL (0.7-4.9); Hematocrit 45.2 % (39.6-49.0); Hemoglobin 15.2 g/dL (13.6-17.9); MCH 27.9 pg (27.0-35.0); MCHC 33.5 g/dL (32.0-36.0); MCV 83.2 fL (80-100); MPV 7.9 fL (7.6-11.3); Nucleated RBC Absolute Count 0.0 (0-0); Nucleated Red Blood Cells % 0.0 % (0-0); RBC Red Blood Cell Count 5.44 M/uL (4.33-5.43); White Blood Count 12.70 thou/uL (4.3-10.9)
--- NOTE | 2025-01-02 16:52 | RAD REPORT ---
EXAMINATION: CT ABDOMEN AND PELVIS UROGRAM WITHOUT AND WITH CONTRAST CLINICAL INDICATION: left lower quadrant abdomen/left low back pain TECHNIQUE: CT abdomen and pelvis was performed, before and after the administration of IV contrast, a s per department protocol. Axial, sagittal and coronal reconstructions were obtained. One or more of the following dose reduction techniques were used: Automated exposure control, adjustment of the m A and/or kV according to patient size, and/or iterative reconstruction. Unless otherwise specified, incidental findings do not require dedicated imaging follow-up. COMPARISON: No prior exam. FINDINGS: LOWER CHEST: The visualized lung bases are clear. LIVER: Normal in size and contour. No focal lesion. No intra or extrahepatic biliary tree dilatation suspected. Grossly unremarkable gallbladder. SPLEEN: Normal size. No focal lesion. PANCREAS: No mass, ductal dilation, or milind-pancreatic fluid. ADRENALS: Normal; no mass. KIDNEYS AND URETERS: 6 mm stone left UVJ results in [id number] left-sided hydronephrosis and hy droureter. Small calculus present mid pole left kidney. URINARY BLADDER: Normal in appearance. No suspicious mass or stone. GASTROINTESTINAL TRACT: No evidence of bowel obstruction, free air, significant free fluid or abscess . APPENDIX: Appendix not visualized, but no inflammatory changes in region of appendix. LYMPH NODES: No lymphadenopathy. REPRODUCTIVE ORGANS: No pathologic process. MUSCULOSKELETAL: No acute or suspicious osseous abnormality. ADDITIONAL FINDINGS: Small fat-containing umbilical hernia and bilateral inguinal hernias. IMPRESSION: 6 mm stone left UVJ resulting in [id number] left-sided hydronephrosis and hydroureter.
[2025-01-02] MEDS ORDERED: FENTANYL CITR 100 MCG/2 ML ONE (17:00)
[2025-01-02 17:04] LABS: ALT/SGPT 23 U/L (16-61); AST/SGOT < 10 U/L (15-37); Albumin 3.5 g/dL (3.4-5.0); Albumin/Globulin Ratio 0.9 (1.1-1.8); Alkaline Phosphatase 84 U/L (45-117); Anion Gap 8.2 mEq/L (5.0-15.0); BUN Blood Urea Nitrogen 20 mg/dL (7-18); Globulin 4.0 g/dL (2.3-3.5); Glucose Level 95 mg/dL (74-106); Lipase 71 U/L (13-75); Potassium 4.2 mEq/L (3.5-5.1)
[2025-01-02 17:04] LABS: Sqamous Epithelial <5 /HPF (None Seen); Urine Culture Reflex Order NOT NEEDED; Urine Microscopic Reflex YN ORDER UMIC
--- NOTE | 2025-01-02 17:22 | EDPHYS ---
Physician Documentation [facility] Name: Howie Castaneda Age: 44 yrs Sex: Male : 1980 Arrival Date: 01/02/2025 Time: 15:21 Bed 24 Private MD: ED Physician Wilmer Landeros HPI: 01/02 15:45 This 44 yrs old Male presents to ER via Ambulatory with complaints of cp Abdominal Pain, Back Pain. 15:45 The patient presents with abdominal pain in the left lower quadrant. cp 15:45 Onset: The symptoms/episode began/occurred 1 week(s) ago, and became worse today. The cp symptoms radiate to left low back. 15:45 Associated signs and symptoms: Pertinent positives: constipation, nausea, Pertinent cp negatives: blood in stools, chest pain, diarrhea, dysuria, fever, vomiting. The symptoms are described as constant. Severity of pain: in the emergency department the pain is unchanged despite home interventions. Historical: - Allergies: 15:25 Morphine; aa5 - PMHx: 15:25 Depression; Hyperlipidemia; Hypertension; kidney stones (Unknown); aa5 - PSHx: 15:29 lymph nodes removed from left axillae; Adenoid excision; aa5 - Immunization history:: Adult Immunizations unknown. - Infectious Disease History:: Denies. - Social history:: Smoking status: Patient denies any tobacco usage or history of. ROS: 15:50 Back: Positive for left low back pain, cp 15:50 Eyes: Negative for injury, pain, redness, and discharge, cp 15:50 Constitutional: Negative for body aches, chills, fever, poor PO intake, 15:50 Abdomen/GI: Positive for abdominal pain, nausea, of the left lower quadrant, Negative for vomiting, diarrhea, constipation, 15:50 Cardiovascular: Negative for chest pain, cp 15:50 Respiratory: Negative for cough, shortness of breath, wheezing, 15:50 Neuro: Negative for altered mental status, dizziness, headache, weakness, 15:50 All other systems are negative, Exam: 15:55 Constitutional: The patient appears in no acute distress, alert, awake, non-toxic, well cp developed, well nourished, uncomfortable, 15:55 Head/Face: Normocephalic, atraumatic. cp 15:55 Eyes: Periorbital structures: appear normal, Conjunctiva: normal, no exudate, no injection, Sclera: no appreciated abnormality, Lids and lashes: appear normal, bilaterally, 15:55 ENT: External ear(s): are unremarkable, Nose: is normal, Mouth: Lips: moist, Oral mucosa: moist, Posterior pharynx: Airway: no evidence of obstruction, patent, 15:55 Chest/axilla: Inspection: normal, 15:55 Cardiovascular: Rate: normal, Rhythm: regular, 15:55 Respiratory: the patient does not display signs of respiratory distress, Respirations: normal, no use of accessory muscles, no retractions, labored breathing, is not present, Breath sounds: are clear throughout, no decreased breath sounds, no stridor, no wheezing, 15:55 Abdomen/GI: Inspection: abdomen appears normal, Bowel sounds: active, all quadrants, Palpation: soft, in all quadrants, moderate abdominal tenderness, in the anterior aspect of left lateral abdomen, posterior aspect of left lateral abdomen, left upper quadrant and left lower quadrant, rebound tenderness, is not appreciated, involuntary guarding, is not appreciated, 15:55 Neuro: Orientation: to person, place \T\ time. Mentation: is normal, Vital Signs: 15:26 BP 148 / 109; Pulse 85; Resp 18 S; Temp 99(O); Pulse Ox 98% on R/A; Weight 91.17 kg aa5 (R); Height 5 ft. 5 in. (R); 16:53 BP 155 / 107; Pulse 87; Resp 16; Pulse Ox 98% on R/A; db 17:22 BP 160 / 111; Pulse 92; Resp 18; Pulse Ox 97% on R/A; db 18:00 BP 163 / 106; Pulse 86; Resp 16; Pulse Ox 100% on R/A; db 19:00 BP 135 / 98; Pulse 91; Resp 18; Pulse Ox 94% on R/A; db 19:18 BP 131 / 95; Pulse 88; Resp 20; Temp 97.5(O); Pulse Ox 100% on R/A; Weight 91.17 kg; tb4 Height 5 ft. 5 in. ; Pain 3/10; 19:18 Body Mass Index 33.45 (91.17 kg, 165.1 cm) tb4 19:18 Pain Scale: Adult tb4 MDM: 17:00 Differential diagnosis: appendicitis, cholecystitis, Cholelithiasis, diverticulitis, cp gastritis, pancreatitis, Pyelonephritis, Ureterolithiasis, urinary tract infection. 17:21 Medical Screening Exam initiated 17:25 Data reviewed: vital signs, nurses notes, lab test result(s), radiologic studies, CT cp scan. 17:25 I considered the following discharge prescriptions or medication management in the emergency department Medications were administered in the Emergency Department. See MAR. 17:25 Counseling: I had a detailed discussion with the patient and/or guardian regarding the historical points, exam findings, and any diagnostic results supporting the discharge/admit diagnosis, lab results, radiology results, the need to transfer to another facility, [facility] does not immediately have the required specialist, urologic consultation. patient requests transfer to [facility]. Response to treatment: the patient's symptoms have mildly improved after treatment. 19:46 ED course: Patient accepted to [facility] for continued care by Dr. Hughes at 1906 cp without discussion. 01/02 15:39 Order name: CBC with Diff; Complete Time: 16:54 01/02 16:54 Interpretation: Normal except: WBC 12.70; RBC 5.44; NEUT A 9.1. 01/02 15:39 Order name: CMP; Complete Time: 17:06 01/02 17:07 Interpretation: Normal except: CL 108; BUN 20; CRE 1.51; GFR 58; AST < 10; GLOB 4.0; cp A/G 0.9. 01/02 15:39 Order name: Lipase; Complete Time: 17:06 01/02 15:39 Order name: UA Rfx Madan Cult if indicated; Complete Time: 17:06 01/02 15:51 Order name: CT Abd/Pelvis- W/WO Contrast; Complete Time: 16:54 01/02 15:39 Order name: IV Saline Lock; Complete Time: 16:38 01/02 15:39 Order name: Labs collected and sent; Complete Time: 16:38 Administered Medications: 16:30 Drug: Ondansetron IVP 4 mg IVP once; over 2 minutes Route: IVP; Site: right forearm; db 16:30 Drug: NS 0.9% IV 1000 ml IV at 1 bolus Per protocol; to be given as a bolus over 60 db minutes Route: IV; Rate: 1 bolus; Site: right forearm; 18:38 Follow up: Response: No adverse reaction; IV Status: Completed infusion; IV Intake: db 1000ml 17:08 Drug: fentaNYL (PF) IVP 50 mcg IVP once Route: IVP; Site: left antecubital; db 17:57 Follow up: Response: No adverse reaction; Pain is unchanged, physician notified db 20:30 Follow up: Response: No adverse reaction; Pain is decreased; RASS: Alert and Calm (0) tb4 17:58 Drug: HYDROmorphone IVP 1 mg IVP once Route: IVP; Site: left antecubital; db 20:30 Follow up: Response: No adverse reaction; Pain is decreased; RASS: Alert and Calm (0) tb4 17:58 Drug: Flomax PO 0.4 mg PO once Route: PO; db 20:30 Follow up: Response: No adverse reaction tb4 18:39 Drug: Ondansetron IVP 4 mg IVP once; over 2 minutes Route: IVP; Site: left antecubital; db 20:30 Follow up: Response: No adverse reaction; Nausea is decreased tb4 20:57 Drug: metoCLOPramide IVP 10 mg IVP once; over 1 to 2 minutes Route: IVP; Site: left tb4 antecubital; 20:57 Drug: diphenhydrAMINE IVP 12.5 mg IVP once Route: IVP; Site: left antecubital; tb4 Disposition: 19:11 I was immediately available on-site in the Emergency Department for consultation in the ms3 care of the patient. Disposition Summary: 01/02/25 17:21 Transfer Ordered Notes: Transfer Location: [facility] cp Reason: Higher level of care cp Condition: Stable cp Problem: an ongoing problem cp Symptoms: have improved cp Accepting Physician: DR Hughes(01/02/25 21:10) tb4 Diagnosis - Calculus of ureter cp - Unspecified injury of left kidney, initial encounter cp Forms: - Medication Reconciliation Form cp - SBAR form cp Signatures: Dispatcher [employer] EDMS Mica Acosta RN RN aa5 Rikki Moffett PA PA cp Wilmer Landeros DO DO ms3 Puckett, Radha, RN RN db Brown, Marsha, RN RN tb4 Corrections: (The following items were deleted from the chart) 15:39 15:39 CBC+H.LAB.BRZ ordered. EDMS EDMS 15:39 15:39 COMPREHENSIVE METABOLIC PANEL+C.LAB.BRZ ordered. EDMS EDMS 15:39 15:39 LIPASE+C.LAB.BRZ ordered. EDMS EDMS 15:39 15:39 UA Rfx Madan Cult if indicated+U.LAB.BRZ ordered. EDMS EDMS 19:46 17:21 doctor sher olivarez 21:10 19:46 DR Hughes cp tb4
--- NOTE | 2025-01-02 17:22 | ER ---
Nurse's Notes [facility] Name: Howie Castaneda Age: 44 yrs Sex: Male : 1980 Arrival Date: 01/02/2025 Time: 15:21 Bed 24 Private MD: Diagnosis: Calculus of ureter;Unspecified injury of left kidney, initial encounter Presentation: 01/02 15:26 Chief complaint: Patient states: left low back and lower abd pain that began aa5 approximately 1 week ago. Pt reports being seen at [facility] last week. Coronavirus screen: At this time, the client does not indicate any symptoms associated with coronavirus-19. Ebola Screen: Patient denies travel to an Ebola-affected area in the 21 days before illness onset. Initial Sepsis Screen: Does the patient meet any 2 criteria? No. Patient's initial sepsis screen is negative. Does the patient have a suspected source of infection? No. Patient's initial sepsis screen is negative. Risk Assessment: Do you want to hurt yourself or someone else? Patient reports no desire to harm self or others. Onset of symptoms was 2024. 15:26 Acuity: BAKARI 3 aa5 15:26 Method Of Arrival: Ambulatory aa5 Historical: - Allergies: 15:25 Morphine; aa5 - PMHx: 15:25 Depression; Hyperlipidemia; Hypertension; kidney stones (Unknown); aa5 - PSHx: 15:29 lymph nodes removed from left axillae; Adenoid excision; aa5 - Immunization history:: Adult Immunizations unknown. - Infectious Disease History:: Denies. - Social history:: Smoking status: Patient denies any tobacco usage or history of. Screenin:36 [facility] ED Fall Risk Assessment (Adult) History of falling in the last 3 months, db including since admission No falls in past 3 months (0 pts) Confusion or Disorientation No (0 pts) Intoxicated or Sedated No (0 pts) Impaired Gait No (0 pts) Mobility Assist Device Used No (0 pt) Altered Elimination No (0 pt) Score/Fall Risk Level 0 - 2 = Low Risk Oriented to surroundings, Maintained a safe environment. Abuse screen: Denies threats or abuse. Denies injuries from another. Nutritional screening: No deficits noted. Tuberculosis screening: No symptoms or risk factors identified. 19:21 [facility] ED Fall Risk Assessment (Adult) History of falling in the last 3 months, tb4 including since admission No falls in past 3 months (0 pts) Confusion or Disorientation No (0 pts) Intoxicated or Sedated No (0 pts) Impaired Gait No (0 pts) Mobility Assist Device Used No (0 pt) Altered Elimination No (0 pt) Score/Fall Risk Level 0 - 2 = Low Risk Maintained a safe environment. Abuse screen: Denies threats or abuse. Nutritional screening: No deficits noted. Tuberculosis screening: No symptoms or risk factors identified. Assessment: 16:25 Reassessment: Patient appears in no apparent distress at this time. Patient and/or db family updated on plan of care and expected duration. Pain level reassessed. Patient is alert, oriented x 3, equal unlabored respirations, skin warm/dry/pink. General: Appears in no apparent distress. comfortable, Behavior is calm, cooperative. Pain: Complains of pain in abdomen. Neuro: Level of Consciousness is awake, alert, obeys commands, Oriented to person, place, time, situation. Respiratory: Airway is patent Respiratory effort is even, unlabored, Respiratory pattern is regular, symmetrical. GI: Bowel sounds present X 4 quads. Abd is soft. 17:29 Reassessment: Patient appears in no apparent distress at this time. Patient and/or db family updated on plan of care and expected duration. Pain level reassessed. Patient is alert, oriented x 3, equal unlabored respirations, skin warm/dry/pink. 17:33 Reassessment: Initiated transfer to [place] per request of JOAQUINA [place]. DX: L ureteral ss stone 6 mm, JAI. Spoke with Sarahi sales training coordinator. 17:43 Reassessment: Faxed clinical's to [place] at this time per Sarahi sales training coordinator. ss Awaiting for return phone call. 18:39 Reassessment: PT REPORTS NAUSEA. NOTIFIED PROVIDER. SEE MAR. db 19:00 Reassessment: Patient appears in no apparent distress at this time. Patient and/or db family updated on plan of care and expected duration. Pain level reassessed. Patient is alert, oriented x 3, equal unlabored respirations, skin warm/dry/pink. Patient states feeling better. Patient states symptoms have improved. 19:16 Reassessment: Patient is alert, oriented x 3, equal unlabored respirations, skin tb4 warm/dry/pink. Patient states feeling better. Patient states symptoms have improved. General: Appears in no apparent distress. comfortable, Behavior is calm, cooperative. Pain: Complains of pain in left low back and left mid back Pain does not radiate. Pain currently is 3 out of 10 on a pain scale. Quality of pain is described as pressure, sharp, Pain began over one week Is continuous, Alleviated by medications. Neuro: No deficits noted. Level of Consciousness is awake, alert, obeys commands, Oriented to person, place, time, situation, Moves all extremities. Full function Gait is steady, Speech is normal, Facial symmetry appears normal. Respiratory: No deficits noted. Airway is patent Trachea midline Respiratory effort is even, unlabored, Respiratory pattern is regular, symmetrical. GI: Bowel sounds present X 4 quads. Abd is soft X 4 quads. : Reports pain in left in lower back. Musculoskeletal: Circulation, motion, and sensation intact. Range of motion: intact in all extremities. Vital Signs: 15:26 BP 148 / 109; Pulse 85; Resp 18 S; Temp 99(O); Pulse Ox 98% on R/A; Weight 91.17 kg aa5 (R); Height 5 ft. 5 in. (R); 16:53 BP 155 / 107; Pulse 87; Resp 16; Pulse Ox 98% on R/A; db 17:22 BP 160 / 111; Pulse 92; Resp 18; Pulse Ox 97% on R/A; db 18:00 BP 163 / 106; Pulse 86; Resp 16; Pulse Ox 100% on R/A; db 19:00 BP 135 / 98; Pulse 91; Resp 18; Pulse Ox 94% on R/A; db 19:18 BP 131 / 95; Pulse 88; Resp 20; Temp 97.5(O); Pulse Ox 100% on R/A; Weight 91.17 kg; tb4 Height 5 ft. 5 in. ; Pain 3/10; 19:18 Body Mass Index 33.45 (91.17 kg, 165.1 cm) tb4 19:18 Pain Scale: Adult tb4 ED Course: 15:22 Patient arrived in ED. mr 15:25 Rikki Moffett PA is PHCP. cp 15:25 Wilmer Landeros DO is Attending Physician. cp 15:25 Arm band placed on. aa5 15:27 Triage completed. aa5 16:15 Missed attempt(s): 22 gauge in right antecubital area. Bleeding controlled, band aid db applied, catheter tip intact. 16:30 Initial lab(s) drawn, by ED staff, sent to lab. Inserted saline lock: 22 gauge in left db antecubital area, using aseptic technique. Blood collected. Flushed with 10 mL NS. 16:33 Patient moved to AR via wheelchair. db 16:35 Radha Puckett, RN is Primary Nurse. db 16:36 Patient has correct armband on for positive identification. Bed in low position. Call db light in reach. Side rails up X 1. Pulse ox on. NIBP on. Pillow given. 16:44 CT Abd/Pelvis- W/WO Contrast In Process Unspecified. EDMS 19:01 Coty initiated transfer with the [facility] spoke with Sarahi \[id number]. vk 19:06 Patient was accepted to [place] ER to Dr. Hughes \T\[id number] accepting admin Sarahi Gan \T\[id number]. vk 19:21 Client placed on continuous cardiac and pulse oximetry monitoring. NIBP monitoring tb4 applied. Pulse ox on. 19:21 No provider procedures requiring assistance completed. tb4 Administered Medications: 16:30 Drug: Ondansetron IVP 4 mg IVP once; over 2 minutes Route: IVP; Site: right forearm; db 16:30 Drug: NS 0.9% IV 1000 ml IV at 1 bolus Per protocol; to be given as a bolus over 60 db minutes Route: IV; Rate: 1 bolus; Site: right forearm; 18:38 Follow up: Response: No adverse reaction; IV Status: Completed infusion; IV Intake: db 1000ml 17:08 Drug: fentaNYL (PF) IVP 50 mcg IVP once Route: IVP; Site: left antecubital; db 17:57 Follow up: Response: No adverse reaction; Pain is unchanged, physician notified db 20:30 Follow up: Response: No adverse reaction; Pain is decreased; RASS: Alert and Calm (0) tb4 17:58 Drug: HYDROmorphone IVP 1 mg IVP once Route: IVP; Site: left antecubital; db 20:30 Follow up: Response: No adverse reaction; Pain is decreased; RASS: Alert and Calm (0) tb4 17:58 Drug: Flomax PO 0.4 mg PO once Route: PO; db 20:30 Follow up: Response: No adverse reaction tb4 18:39 Drug: Ondansetron IVP 4 mg IVP once; over 2 minutes Route: IVP; Site: left antecubital; db 20:30 Follow up: Response: No adverse reaction; Nausea is decreased tb4 20:57 Drug: metoCLOPramide IVP 10 mg IVP once; over 1 to 2 minutes Route: IVP; Site: left tb4 antecubital; 20:57 Drug: diphenhydrAMINE IVP 12.5 mg IVP once Route: IVP; Site: left antecubital; tb4 Medication: 19:20 VIS not applicable for this client. db Intake: 18:38 IV: 1000ml; Total: 1000ml. db Outcome: 17:21 ER care complete, transfer ordered by . cp 20:15 Transferred by ground EMS to [facility] Transfer form completed. tb4 Note: Report given to Britt lost charge card clerk nurse. 21:10 Patient left the ED. tb4 Signatures: Dispatcher [employer] EDSD Meghann Vaughn, Reg Reg mr Mica Acosta, RN RN aa5 Coty Griffin, RN RN Rikki Juárez PA PA cp Radha Puckett, RN RN Tejal Madison Terri, RN RN tb4 Corrections: (The following items were deleted from the chart) 15:29 15:26 BP 148 / 109; Pulse 85bpm; Resp 18bpm; Spontaneous; Pulse Ox 98% RA; Temp 99F aa5 Oral; aa5
[2025-01-02] MEDS ORDERED: TAMSULOSIN 0.4 MG SR CAP ONE (18:03)
[2025-01-02] MEDS ORDERED: HYDROMORPHONE HCL 1 MG/ML INJ ONE (18:03)
[2025-01-02] MEDS ORDERED: METOCLOPRAMIDE 10 MG/2mL INJ ONE (20:47)
[2025-01-02] MEDS ORDERED: DIPHENHYDRAMINE 50 MG/ML VIAL ONE (20:47)
[2025-01-02 22:23] VITALS: BP 131/95; TEMP 97.5; O2SAT 100
== END 2025-01-02 21:10 ==
LOC: ER 15:21
DX: N20.1 Calculus of ureter (principal); S37.002A Unspecified injury of left kidney, initial encounter; Z87.442 Personal history of urinary calculi
CPT/HCPCS: 85025; 81001; 36415; 83690; 80053; 74178; 99285; Q9967; J2765; J1200; J3010; J1171; J2405 ×2; J7030